=== PATIENT | male | born 1970 | race American Indian/Alaskan Native ===

== ENCOUNTER 2016-06-09 10:59 | Outpatient (CLI) | payer OTHER ==
--- NOTE | 2016-06-09 13:36 | XRay Report ---
RIGHT KNEE: The bony architecture is intact without evidence of fracture or dislocation. No significant soft tissue abnormality is seen. IMPRESSION: Normal right knee. Cervical spine: AP and lateral views demonstrates normal alignment, vertebral height, and interspace distances. There is mild anterior and posterior spondylosis inferiorly at C5 and C6. There is no soft tissue swelling. Impression: Mild focal spondylosis. No acute finding. Lumbar spine: Calcification of the anterior longitudinal ligament at L4 with mild spondylosis noted at L2 and L3. The vertebral height, alignment, and interspaces are well preserved. The bones are well-mineralized. No soft tissue swelling noted. Impression: No acute or significant abnormal finding.
== END 2016-06-09 11:00 | disposition home or self-care (01) ==
LOC: XRAY 10:59
PROVIDERS: ATTEND Internal Medicine
DX: M47.892 Other spondylosis, cervical region (principal); M62.830 Muscle spasm of back; M54.5 Low back pain; M25.561 Pain in right knee; M54.2 Cervicalgia
CPT/HCPCS: 72040; 72100